=== PATIENT | female | born 1960 | race Caucasian/White ===

== ENCOUNTER 2025-05-12 10:36 | Emergency (ER) | payer BC ==
[~2025-05-12] VITALS: Ht 170.2 cm; Wt 64.0 kg
--- NOTE | 2025-05-12 11:02 | Physician Documentation ---
History of Present Illness ~ Chief Complaint: Hand pain Stated Complaint: ALLERGIC REACTION Time Seen by MD: 11:17 OK to notify your PCP?: Yes Source: patient Mode of Arrival: POV Exam Limitations: no limitations HPI 65-year-old female presents with right arm pain and swelling after having osteoclast IV infusion for osteoporosis on . Has not taken any medications prior to arrival for her symptoms. Medication Reconciliation Allergies: Uncoded Allergies: ARITHROMYCIN (Allergy, Mild, n/v, 05/12/25) Physical Exam Vital Signs: RN Vital Signs have been reviewed: Yes Pulse Oximetry Reflects: adequate oxygenation Physical Exam General: Alert, no distress. HEENT: No injection, moist mucous membranes. Neck: Full range of motion. Respiratory: No respiratory distress, equal chest rise and fall. Chest: No accessory muscle use. Cardiovascular: Regular rate and rhythm. Gastrointestinal: Nondistended. Extremities: , edema and tenderness to right arm from elbow to hands. Neurologic: Oriented x4. Psychiatric: Normal mood and affect. Skin: Normal color, warm and dry. Progress Results/Orders Results/Orders Orders - LEONARDA HERRERA MD Venous Us Study (05/12/25 11:25) Vl Venous (05/12/25 13:17) Completed Orders - LEONARDA HERRERA MD C-Reactive Protein (05/12/25 11:25) ESR (05/12/25 11:25) Cbc/Diff (05/12/25 11:25) BMP (05/12/25 11:25) Oxycodone 15mg Er Tablet (Oxycontin Ext. (05/12/25 11:30) Oxycodone Immed Release Tablet (Oxy Ir T (05/12/25 11:30) Medications Received in ER Medications (Trade) Dose Ordered Sig/Edna Route PRN Reason Start Time Stop Time Status Last Admin Dose Admin (OXY IR tablet) 5 mg ONCE ONCE PO 05/12/25 11:30 05/12/25 11:38 DC 05/12/25 11:44 5 MG Vital Signs 05/12/25 05/12/25 05/12/25 05/12/25 10:54 11:29 11:54 12:54 Temp 99.1 Pulse 86 72 72 Resp 16 18 16 B/P (MAP) 189/106 160/98 (118) 149/93 (111) Pulse Ox 97 97 96 O2 Flow Rate 0 0 0 Laboratory Tests Test 05/12/25 11:34 White Blood Count 6.3 Red Blood Count 4.78 Hemoglobin 14.6 Hematocrit 43.6 Mean Corpuscular Volume 91.3 Mean Corpuscular Hemoglobin 30.6 Mean Corpuscular Hemoglobin Concent 33.5 Red Cell Distribution Width 13.9 Platelet Count 259 Mean Platelet Volume 7.7 Neutrophils (%) (Auto) 62.4 Lymphocytes (%) (Auto) 25.1 Monocytes (%) (Auto) 11.3 Eosinophils (%) (Auto) 0.6 Basophils (%) (Auto) 0.6 Neutrophils # (Auto) 3.9 Lymphocytes # (Auto) 1.6 Monocytes # (Auto) 0.7 Eosinophils # (Auto) 0.0 Basophils # (Auto) 0.0 CBC Comment Erythrocyte Sedimentation Rate 8 Sodium Level 131 L Potassium Level 3.2 L Chloride Level 97 L Carbon Dioxide Level 25.1 Anion Gap 9 Blood Urea Nitrogen 8 Creatinine 0.69 Estimated GFR/1.73 m2 85 BUN/Creatinine Ratio 11.6 Glucose Level 100 Calcium Level 9.3 C-Reactive Protein 2.36 H Albumin 4.1 Chemistry Comments Medical Decision Making Additional information obtaine: N/A Findings While here in the ED, she remained hemodynamically normal with ABC's intact and in NAD. She is afebrile and nontoxic. + swelling to left hand. Neurovascularly intact. 2+ pulses to the left arm and cap refill < 2 seconds. I reviewed her labs and there are no acute abnormalities. ESR and CRP both within normal ranges. Duplex of the LUE without acute findings. Reclast is noted to cause myalgias and arthralgia and this appears most consistent with today's presentation. Nothing to do acutely from the ED and this does not appear to be systemic. She is safe for d/c home with continue outpatient symptomatic therapy. She states that the redness she originally noticed on Wednesday and has improved. She does not clinically appear to have an acute septic joint, rhabdo, or an acute compartment syndrome. She is safe for d/c home. Given follow-up and return instructions. She voiced understanding and agreement with d/c instructions. General Diff Dx:Considerations: Include: Abrasion, Contusion, Hematoma, Neurovascular injury, Sprain Shoulder Diff Dx:Consideration: Unlikely: AC separation, Adhesive capsulitis, Arthritis, Bicipital tendonitis, Calcific tendonitis, Cervical disc disease, Contusion, Dislocation, Fracture-humerus, Fracture-scapula, Fracture-clavicle, GB disease, Hematoma, Impingement syndrome, Myocardial infarction, Neurovascular injury, Open fracture-humerus, Open fracture-scapula, Open fracture-clavicle, Rotator cuff injury, SC dislocatoin, Sprain, Subacromial bursitis, Other Elbow Diff Dx:Considerations: Unlikely: Abrasion, Arthritis, Contustion, DJD, Fracture-humerus, Fracture-radial head, Fracture-radius, Fracture-ulna, Gout, Hematoma, Laceration, Neurovascular injury, Olecranon bursitis, Open fracture, Osteomyelitis, Radial head subluxation, Rheumatoid arthritis, Septic, Sprain, Ulcer, Other Wrist Diff Dx:Considerations: Unlikely: Abrasion, Arthritis, DJD, Gout, Rheumatoid, Septic, Carpal tunnel snydrome, Contusion, Dislocation, Fracture- carpal, Fracture-radius, Fracture-ulna, Ganglion, Laceration, Neurovascular injury, Open fracture, Strain, Other Hand Diff Dx:Considerations: Unlikely: Abrasion, Arthritis, Contusion, DJD, Felon, Fracture-carpal, Fracture-metacarpal, Fracture-phalynx, Fracture-radius, Fracture-ulna, Gout, Hematoma, Herpetic dru, Laceration, Neurovascular injury, Open fracture, Paronychia, Rheumatoid arthritis, Septic, Sprain, Subungual hematoma, Tenosynovitis, Volar plate injury, Cellulitis, Malunion, Other Finger Diff Dx:Considerations: Unlikely: Abrasion, Cellulitis, Contusion, Dislocation, Fracture, Hematoma, Laceration, Neurovascular injury, Open fracture, Subungual hematoma, Other Departure Disposition: 01 HOME / SELF CARE / HOMELESS Impression: Primary Impression: Arthritis Additional Impression: Hand pain Condition: Improved Discharge Instructions: Arthritis, Nonspecific Referrals: NO PRIMARY CARE PROVIDER (PCP) Prescriptions Hydrocodone Bit/Acetaminophen 5/325 MG (Roy 5/325 MG) 5 Mg/325 Mg Tablet 1 TAB PO Q6H PRN for pain, #12 TAB Prov: LEONARDA HERRERA MD 05/12/25 Comments Take medications as prescribed and follow-up with your Physician on Wednesday. Return to the Emergency Department if there are any additional concerns. Education Educated: Patient, Family Educated regarding: diagnosis, treatment Additional Comment Medical Screen Exam This patient recieved a medical screening examination. After reviewing the individual's medical complaints with presenting symptoms and performing an appropriate physical examination, it was determined that no immediate life- threatening emergency medical condition is present. This individual is also not a women having contractions. ACF Form Admit Criteria Met or Not Met: NO Signature Scribe Signature: N/A Attestation: N/a BENJAMÍN OLIVER May 12, 2025 11:02 LEONARDA HERRERA MD May 12, 2025 12:11
[2025-05-12] MEDS ORDERED: OXYcodone (OXYCONTIN) Ext Release 15 MG TAB.SR.12H PO SCH (11:30)
[2025-05-12] MEDS: oxyCODONE IR 5mg (immed. release) tablet PO ONE (11:44)
[2025-05-12 11:45] LABS: MEAN PLATELET VOLUME 7.7 FL (7.4-10.4); RED CELL DISTRIBUTION WIDTH 13.9 % (11.5-14.5)
[2025-05-12 11:57] LABS: CREATININE 0.69 MG/DL (0.40-0.90); TOTAL CARBON DIOXIDE 25.1 MMOL/L (24-32); eCRCL 79 ML/MIN; eGFR 85 ML/MIN
[2025-05-12] MEDS ORDERED: HYDR-3965 PO (13:57)
[2025-05-12 14:02] VITALS: BP 166/86; PULSE 79; RESP 18; TEMP 99.1; O2SAT 96
--- NOTE | 2025-05-12 14:17 | VASCULAR REPORT ---
Technique: Real-time ultrasound imaging, with color Doppler and compression of the left upper extremity are obtained. Indication: Swelling Comparison: None Findings: Images of the left internal jugular, subclavian, axillary, brachial, basilic, cephalic veins are obtained. No filling defects identified. Impression: No evidence of DVT in the left upper extremity.
== END 2025-05-12 14:00 | disposition home or self-care (01) ==
LOC: ER 10:37
DX: M19.90 Unspecified osteoarthritis, unspecified site (principal); M79.642 Pain in left hand
CPT/HCPCS: 36415; 80048; 85025; 85651; 86140; 93971; 99284